=== PATIENT | male | born 1960 | race Caucasian/White ===

== ENCOUNTER 2023-09-23 11:07 | Outpatient (REF) | payer MEDICAID, SELFPAY ==
[2023-09-23 13:46] LABS: Cholesterol 240 mg/dL (<200); HDL Cholesterol 66 mg/dL (>40); LDL Cholesterol Calculated 156 mg/dL (<100); Triglycerides 92 mg/dL (<150)
[2023-09-26 21:19] LABS: Apolipoprotein A1 193 mg/dL (>=115); Apolipoprotein B 119 mg/dL (<90)
== END 2023-09-23 11:08 | disposition home or self-care (01) ==
LOC: HO.MANLDS 11:07
PROVIDERS: Visit Provider Physician Assistant
DX: E78.5 Hyperlipidemia, unspecified (principal)
CPT/HCPCS: 36415; 80061; 82172